=== PATIENT | male | born 1935 | race Hispanic/Latino ===

== ENCOUNTER 2023-09-03 11:36 | Observation (INO) | payer OTHER ==
[~2023-09-03] VITALS: Ht 157.5 cm; Wt 46.3 kg
[~2023-09-03 11:36] MED LIST: CHOL500062 PO; CRAN1CAP17 PO; ELDE350C PO; FERR-82 PO; MULT-1367 PO
[2023-09-03 13:18] LABS: BASOPHILS # (AUTO) 0.01 K/uL (0.00-0.20); BASOPHILS % (AUTO) 0.2 % (0.0-5.0); EOSINOPHILS # (AUTO) 0.02 K/uL (0.00-0.70); EOSINOPHILS % (AUTO) 0.4 % (0.0-8.0); HEMATOCRIT 32.1 % (42-54); IMMATURE GRANULOCYTE ABSOLUTE 0.02 K/uL (0-1); LYMPHOCYTES # (AUTO) 0.7 K/uL (1.0-4.8); MEAN CORPUSCULAR HEMOGLOBIN 31.7 pg (27.0-33.0); MEAN CORPUSCULAR VOLUME 93.3 fL (79-99); MONOCYTES # (AUTO) 0.4 K/uL (0.1-1.0); MONOCYTES % (AUTO) 8.1 % (3.0-13.0); NEUTROPHILS # (AUTO) 3.6 K/uL (1.8-7.7); NEUTROPHILS % (AUTO) 75.9 % (40.0-77.0); PLATELET COUNT (AUTO) 144 K/uL (130-400); RED BLOOD CELL COUNT(AUTO) 3.44 MIL/uL (4.50-6.20); RED CELL DISTRIBUTION WIDTH 12.9 % (11.0-15.5); WHITE BLOOD COUNT (AUTO) 4.7 K/uL (4.8-10.8)
[2023-09-03 13:29] LABS: ALBUMIN 3.2 g/dL (3.5-5.0); BILIRUBIN,TOTAL 0.8 mg/dL (0.2-1.0); CREATININE 0.8 mg/dL (0.5-1.3); POTASSIUM 3.8 mmol/L (3.5-5.1); TOTAL PROTEIN, SERUM 6.6 g/dL (6.0-8.3)
[2023-09-03 13:33] LABS: INR 0.96 (0.85-1.15); PROTHROMBIN TIME 11.4 SEC (9.6-11.6)
[2023-09-03 13:34] LABS: PARTIAL THROMBOPLASTIN TIME 31.6 SEC (26.3-35.5)
[2023-09-03] MEDS: MORPHINE 2 MG SYG IM ONE (13:53)
[2023-09-03] MEDS: ONDANSETRON 4MG INJ IVP ONE (13:54)
[2023-09-03 16:06] LABS: APPEARANCE,URINE CLEAR (CLEAR); BILIRUBIN,URINE NEGATIVE (NEGATIVE); COLOR,URINE YELLOW (YELLOW); GLUCOSE, URINE (UA) NEGATIVE (NEGATIVE); KETONES,URINE NEGATIVE (NEGATIVE); LEUKOCYTE ESTERASE ,URINE NEGATIVE Leu/uL (NEGATIVE); NITRATE,URINE NEGATIVE (NEGATIVE); PROTEIN,URINE NEGATIVE (NEGATIVE); UROBILINOGEN,URINE 0.2 mg/dL (0.2-1.0)
[2023-09-03 16:08] LABS: ADD UA MICROSCOPIC YES
[2023-09-03 16:22] LABS: RBC,URINE None Seen /HPF (0-1); WBC,URINE 0-1 /HPF (0-1)
[2023-09-03 16:23] LABS: BACTERIA,URINE None Seen /HPF (None Seen); SQUAMOUS EPITHELIAL CELL,UR None Seen /HPF (0-2)
[2023-09-03] MEDS ORDERED: ONDANSETRON 4MG INJ IVP PRN (18:30)
[2023-09-03] MEDS ORDERED: ACETAMINOPHEN 325 MG TAB PO PRN (18:30)
[2023-09-03] MEDS ORDERED: KETOROLAC 30MG VIAL (30MG/ML) IVP PRN (18:30)
[2023-09-04 07:22] VITALS: BP 127/57; PULSE 66; RESP 18
[2023-09-04 08:04] LABS: BASOPHILS # (AUTO) 0.01 K/uL (0.00-0.20); BASOPHILS % (AUTO) 0.2 % (0.0-5.0); EOSINOPHILS # (AUTO) 0.07 K/uL (0.00-0.70); EOSINOPHILS % (AUTO) 1.6 % (0.0-8.0); HEMATOCRIT 32.7 % (42-54); IMMATURE GRANULOCYTE ABSOLUTE 0.01 K/uL (0-1); LYMPHOCYTES # (AUTO) 0.7 K/uL (1.0-4.8); LYMPHOCYTES % (AUTO) 15.3 % (21.0-51.0); MEAN CORPUSCULAR HGB CONC 33.6 g/dL (32.0-36.0); MEAN CORPUSCULAR VOLUME 95.1 fL (79-99); MONOCYTES # (AUTO) 0.5 K/uL (0.1-1.0); MONOCYTES % (AUTO) 10.9 % (3.0-13.0); NEUTROPHILS # (AUTO) 3.1 K/uL (1.8-7.7); NEUTROPHILS % (AUTO) 71.8 % (40.0-77.0); PLATELET COUNT (AUTO) 144 K/uL (130-400); RED BLOOD CELL COUNT(AUTO) 3.44 MIL/uL (4.50-6.20); RED CELL DISTRIBUTION WIDTH 12.7 % (11.0-15.5); WHITE BLOOD COUNT (AUTO) 4.3 K/uL (4.8-10.8)
[2023-09-04 08:20] VITALS: BP 146/74; PULSE 68; RESP 16
[2023-09-04 08:26] LABS: BILIRUBIN,TOTAL 0.8 mg/dL (0.2-1.0); CREATININE 0.8 mg/dL (0.5-1.3); MAGNESIUM 1.8 mg/dL (1.80-2.40); POTASSIUM 3.9 mmol/L (3.5-5.1); TOTAL PROTEIN, SERUM 6.4 g/dL (6.0-8.3)
[2023-09-04] MEDS ORDERED: ACETAMINOPHEN WITH CODEINE 1 TAB TAB PO PRN (10:00)
[2023-09-04 12:00] VITALS: BP 124/60; PULSE 70; RESP 18
[2023-09-04 16:00] VITALS: BP 153/70; PULSE 78; RESP 16
[2023-09-04 20:00] VITALS: BP 131/55; PULSE 69; RESP 15
[2023-09-05] VITALS (7 sets, daily range): BP systolic 109–147; BP diastolic 54–70; PULSE 68–92; RESP 15–18; O2SAT 99
[2023-09-06] VITALS: BP 108/56; PULSE 64; RESP 16
[2023-09-06 04:00] VITALS: BP 110/59; PULSE 68; RESP 16
[2023-09-06 07:10] VITALS: BP 156/68; PULSE 70; RESP 18
[2023-09-06 08:00] VITALS: O2SAT 99
== END 2023-09-06 13:45 | disposition home or self-care (01) ==
LOC: EDH 11:36 → EDHIP 11:37 → UNDOADMOB 18:24 → 3DH 09-04 07:43 → EDHIP 09-04 07:43
PROVIDERS: ADMIT Internal Medicine; ATTEND Internal Medicine
DX: S70.01XA Contusion of right hip, initial encounter (principal); M79.604 Pain in right leg; Z88.0 Allergy status to penicillin; W01.0XXA Fall on same level from slipping, tripping and stumbling without subsequent striking against object, initial encounter; Y93.89 Activity, other specified; Y92.098 Other place in other non-institutional residence as the place of occurrence of the external cause; Y99.8 Other external cause status
CPT/HCPCS: 99284; 84484; 80053 ×2; 85025 ×2; 85610; 85730; 81001; 36415 ×2; 73502; 73552; 72192; 83735; 97161; 97530 ×7; 97116; G0378 ×74; J1885

== ENCOUNTER 2024-01-12 11:11 | Observation (INO) | payer OTHER ==
[~2024-01-12] VITALS: Ht 157.5 cm; Wt 45.4 kg
[2024-01-12 12:22] LABS: BASOPHILS # (AUTO) 0.01 K/uL (0.00-0.20); BASOPHILS % (AUTO) 0.2 % (0.0-5.0); EOSINOPHILS # (AUTO) 0.01 K/uL (0.00-0.70); EOSINOPHILS % (AUTO) 0.2 % (0.0-8.0); HEMATOCRIT 34.8 % (42-54); IMMATURE GRANULOCYTE ABSOLUTE 0.01 K/uL (0-1); LYMPHOCYTES # (AUTO) 0.6 K/uL (1.0-4.8); LYMPHOCYTES % (AUTO) 13.8 % (21.0-51.0); MEAN CORPUSCULAR HEMOGLOBIN 31.8 pg (27.0-33.0); MEAN CORPUSCULAR HGB CONC 32.8 g/dL (32.0-36.0); MEAN CORPUSCULAR VOLUME 96.9 fL (79-99); MONOCYTES # (AUTO) 0.2 K/uL (0.1-1.0); MONOCYTES % (AUTO) 5.2 % (3.0-13.0); NEUTROPHILS # (AUTO) 3.4 K/uL (1.8-7.7); NEUTROPHILS % (AUTO) 80.4 % (40.0-77.0); PLATELET COUNT (AUTO) 195 K/uL (130-400); RED BLOOD CELL COUNT(AUTO) 3.59 MIL/uL (4.50-6.20); RED CELL DISTRIBUTION WIDTH 13.5 % (11.0-15.5); WHITE BLOOD COUNT (AUTO) 4.3 K/uL (4.8-10.8)
[2024-01-12 12:45] LABS: B-TYPE NATRIURETIC PEPTIDE 82 pg/mL (0-100)
[2024-01-12 12:50] LABS: ALBUMIN 3.3 g/dL (3.5-5.0); BILIRUBIN,TOTAL 0.5 mg/dL (0.2-1.0); CREATININE 0.9 mg/dL (0.5-1.3); POTASSIUM 3.8 mmol/L (3.5-5.1); TOTAL PROTEIN, SERUM 6.7 g/dL (6.0-8.3)
[2024-01-12] MEDS: 1/2 NS 1000ML 1,000 ML IV SCH (18:23)
[2024-01-12 18:40] VITALS: O2SAT 100
[2024-01-12 19:00] VITALS: BP 144/72; PULSE 66; RESP 18; TEMP 97.8
[2024-01-12] MEDS: cefTRIAXone 1G VIAL IVPB SCH (20:33)
[2024-01-12] MEDS: cefTRIAXone 1G VIAL ONE (20:34)
[2024-01-12 23:00] VITALS: BP 146/65; PULSE 71; RESP 18; TEMP 97.5
[2024-01-13 04:00] VITALS: BP 162/98; PULSE 68; RESP 18; TEMP 97.1
[2024-01-13 08:00] VITALS: O2SAT 99
[2024-01-13 08:16] VITALS: BP 119/63; PULSE 66; RESP 17; TEMP 97.8
[2024-01-13] MEDS: ENOXAPARIN SODIUM 40 MG/0.4 ML SYRINGE SQ SCH (09:00)
[2024-01-13 12:38] VITALS: BP 129/59; PULSE 65; RESP 17; TEMP 98.5
[2024-01-13 16:00] VITALS: BP 138/66; PULSE 70; RESP 18; TEMP 98.3
[2024-01-13 20:00] VITALS: BP 130/57; PULSE 64; RESP 18; TEMP 97.7; O2SAT 99
[2024-01-14] VITALS: BP 127/69; PULSE 65; RESP 18; TEMP 97.8
[2024-01-14 04:00] VITALS: BP 137/73; PULSE 71; RESP 18; TEMP 97.5
[2024-01-14 08:00] VITALS: BP 147/73; PULSE 63; RESP 18; TEMP 97.8
[2024-01-14 08:22] VITALS: O2SAT 100
[2024-01-14 12:00] VITALS: BP 115/52; PULSE 68; RESP 16; TEMP 96.7
== END 2024-01-14 11:45 | disposition home or self-care (01) ==
LOC: EDH 11:11 → 3BH 18:29 → EDH 18:34 → 3AH 01-13 13:38
PROVIDERS: ADMIT Internal Medicine; ATTEND Internal Medicine
DX: R55 Syncope and collapse (principal); E86.0 Dehydration; D64.9 Anemia, unspecified; E11.9 Type 2 diabetes mellitus without complications; I10 Essential (primary) hypertension; I95.9 Hypotension, unspecified; E78.5 Hyperlipidemia, unspecified; Z88.0 Allergy status to penicillin; Z79.899 Other long term (current) drug therapy; W19.XXXA Unspecified fall, initial encounter; Y93.89 Activity, other specified; Y92.89 Other specified places as the place of occurrence of the external cause; Y99.8 Other external cause status
CPT/HCPCS: 96361; 96365; 99285; 82550; 84484; 80053; 83880; 85025; 36415; 71045; 70450; 93005 ×2; 96372 ×2; 96366 ×3; 96368; G0378 ×42; J0696 ×2; J1650 ×2

== ENCOUNTER 2024-04-23 15:16 | Emergency (ER) | payer OTHER ==
[~2024-04-23] VITALS: Ht 167.6 cm; Wt 54.4 kg
--- NOTE | 2024-04-23 16:07 | HMCIMG ---
Exam Type: CHEST 1VW Clinical Information: cp Comparison: None Findings: The lungs are hyperinflated consistent with COPD. There are clear of infiltrates and the heart is normal in size. IMPRESSION: COPD.
[2024-04-23 16:08] LABS: BASOPHILS # (AUTO) 0.01 K/uL (0.00-0.20); BASOPHILS % (AUTO) 0.3 % (0.0-5.0); EOSINOPHILS # (AUTO) 0.03 K/uL (0.00-0.70); EOSINOPHILS % (AUTO) 0.8 % (0.0-8.0); HEMATOCRIT 40.4 % (42-54); IMMATURE GRANULOCYTE ABSOLUTE 0.01 K/uL (0-1); LYMPHOCYTES # (AUTO) 0.8 K/uL (1.0-4.8); LYMPHOCYTES % (AUTO) 20.6 % (21.0-51.0); MEAN CORPUSCULAR HEMOGLOBIN 32.6 pg (27.0-33.0); MEAN CORPUSCULAR HGB CONC 32.9 g/dL (32.0-36.0); MONOCYTES # (AUTO) 0.2 K/uL (0.1-1.0); NEUTROPHILS # (AUTO) 2.9 K/uL (1.8-7.7); PLATELET COUNT (AUTO) 151 K/uL (130-400); RED BLOOD CELL COUNT(AUTO) 4.08 MIL/uL (4.50-6.20); RED CELL DISTRIBUTION WIDTH 13.6 % (11.0-15.5)
[2024-04-23] MEDS: 0.9%NACL 1000ML 1,000 ML IV ONE (16:11)
[2024-04-23 16:20] LABS: CREATININE 0.8 mg/dL (0.5-1.3); POTASSIUM 3.3 mmol/L (3.5-5.1)
[2024-04-23 16:30] LABS: ALBUMIN 3.1 g/dL (3.5-5.0); BILIRUBIN,TOTAL 0.5 mg/dL (0.2-1.0); TOTAL PROTEIN, SERUM 6.5 g/dL (6.0-8.3)
--- NOTE | 2024-04-23 16:58 | EKG ---
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
--- NOTE | 2024-04-23 17:44 | ERN ---
General Chief Complaint: Weakness Stated Complaint: WEAKNESS Time Seen by MD: 15:22 Source: patient, EMS History of Present Illness Initial Comments Patient is a an 88-year-old male coming in to be evaluated for generalized body weakness. Per family member at bedside patient has been feeling weak for a couple of days. Family member was concerned because today he was a little bit more weak than usual for decided to bring him in to be evaluated. Allergies: Coded Allergies: Penicillins (Unverified Allergy, Unknown, 01/14/23) Home Meds No Active Prescriptions or Reported Meds Past Medical History Past Medical History: Other Medical History Other: ?DEMENTIA-FAMILY DENIES ANY OTHER Past Surgical History: None Family History Family History: Negative Social History Social History: Negative ROS Dictation CONSTITUTIONAL: No chills, no fever, weakness, no diaphoresis, no malaise. HEAD/FACE: No signs of trauma. EENT: No eye pain, no blurred vision, no tearing, no double vision, no ear pain, no ear discharge, no nose pain, no nasal congestion, no throat pain, no throat swelling, no mouth pain. RESPIRATORY: No cough, no orthopnea, no SOB, no stridor, no wheezing. CARDIOVASCULAR: No chest pain, no edema, no palpitations, no syncope. GASTROINTESTINAL/ABDOMINAL: No abdominal pain, no constipation, no diarrhea, no nausea, no vomiting. GENITOURINARY: No abnormal discharge, no dysuria, no frequent urination, no hematuria. No complaints of pain in the genitals. MUSCULOSKELETAL: No back pain, no gout, no joint pain, no joint swelling, no muscle pain, no muscle stiffness, no neck pain. INTEGUMENTARY: No change in color, no change in hair/nails, no dryness, no l esion, no lumps, no rash. NEUROLOGICAL/PSYCH: No anxiety, not depressed, no emotional problem, no headache, no numbness, no pre-existing deficit, no history of seizures, no tremors, no weakness. HEMATOLOGIC/LYMPHATIC: Not anemic, no history of blood clots, no apparent bleeding, no bruising, glands not swollen. All Systems Negative, Except as Noted. Physical Exam Physical Exam Dictation VITAL SIGNS: Reviewed. GENERAL APPEARANCE: Alert, oriented x3, no acute distress, cachectic. HEAD AND FACE: Non-traumatic. EYES: PERRL, pink conjunctivas, eyelid no trauma, anterior chamber clear. EARS: Pinnas intact and no signs of trauma or erythema. Ear canals clear and no discharge. TMs no erythema. NOSE: No discharge, no bleeding. OROPHARYNX: Mouth normal, teeth no caries, tongue pink. Pharynx clear, no erythema. Tonsils no exudates, no abscesses noted. Mucous membrane moist. NECK: Supple, non-tender, no thyromegaly, no masses, no JVD, no bruits. BREAST: Deferred. CHEST: No tenderness, no crepitus, no paradoxical movement, no retractions. LUNGS: Clear, well-ventilated, symmetric, no rales, no wheezing, no rhonchi, no stridor, good breath sounds bilaterally. HEART: Regular rate, regular rhythm, no murmur, no gallops. VASCULAR: No peripheral edema. ABDOMEN: Soft, positive bowel sounds, nondistended, no guarding, nontender, no rebound, no masses no hepatomegaly, no splenomegaly, no Berger's sign, no hernias. RECTAL: Deferred. GENITAL: Deferred. NEUROLOGICAL: Normal speech, gross motor function intact, gross sensory function intact. MUSCULOSKELETAL: Neck nontender, full range of motion, back nontender, full range of motion. EXTREMITIES: Nontender, full range of motion. SKIN: Color pink, dry, no turgor, no rash, no lacerations, no abrasions, no contusions. LYMPHATICS: Deferred. Results Laboratory and Microbiology Lab and Micro Result Laboratory Tests Test 04/23/24 16:00 White Blood Count 4.0 K/uL (4.8-10.8) L Red Blood Count 4.08 MIL/uL (4.50-6.20) L Hemoglobin 13.3 g/dL (14.0-18.0) L Hematocrit 40.4 % (42-54) L Mean Corpuscular Volume 99.0 fL (79-99) Mean Corpuscular Hemoglobin 32.6 pg (27.0-33.0) Mean Corpuscular Hemoglobin Concent 32.9 g/dL (32.0-36.0) Red Cell Distribution Width 13.6 % (11.0-15.5) Platelet Count 151 K/uL (130-400) Mean Platelet Volume 10.4 fL (7.5-10.5) Immature Granulocyte % (Auto) 0.3 % (0-1) Neutrophils (%) (Auto) 72.0 % (40.0-77.0) Lymphocytes (%) (Auto) 20.6 % (21.0-51.0) L Monocytes (%) (Auto) 6.0 % (3.0-13.0) Eosinophils (%) (Auto) 0.8 % (0.0-8.0) Basophils (%) (Auto) 0.3 % (0.0-5.0) Neutrophils # (Auto) 2.9 K/uL (1.8-7.7) Lymphocytes # (Auto) 0.8 K/uL (1.0-4.8) L Monocytes # (Auto) 0.2 K/uL (0.1-1.0) Eosinophils # (Auto) 0.03 K/uL (0.00-0.70) Basophils # (Auto) 0.01 K/uL (0.00-0.20) Absolute Immature Granulocyte (auto 0.01 K/uL (0-1) Nucleated Red Blood Cells 0.0 % (0.0-0.19) Sodium Level 144 mmol/L (136-145) Potassium Level 3.3 mmol/L (3.5-5.1) L Chloride Level 104 mmol/L (101-111) Carbon Dioxide Level 38 mmol/L (21-32) H Blood Urea Nitrogen 43 mg/dL (7-18) H Creatinine 0.8 mg/dL (0.5-1.3) Glomerular Filtration Rate Calc 86 mL/min (>90) Random Glucose 109 mg/dL (70-105) H Total Calcium 9.4 mg/dL (8.5-10.1) Total Bilirubin 0.5 mg/dL (0.2-1.0) Aspartate Amino Transf (AST/SGOT) 17 U/L (10-37) Alanine Aminotransferase (ALT/SGPT) 12 U/L (12-78) Alkaline Phosphatase 70 U/L (50-136) Total Creatine Kinase 28 U/L (21-232) # Troponin I High Sensitivity 8 ng/L (4-75) Total Protein 6.5 g/dL (6.0-8.3) Albumin 3.1 g/dL (3.5-5.0) L Lipase 26 U/L (16-77) Labs Reviewed?: Yes EKG/XRAY/US/CT/MRI X-RAY Comment 04/23/2024 time 3:40 p.m. is Ventricular rate 76 Sinus rhythm SD [address] wave elevation or depression MDM MDM: Differential diagnosis: Dehydration, weakness, chronic fatigue, Patient is a an 88-year-old gentleman brought in by family members due to generalized body weakness. IV fluids help patient is significantly. Throughout ER visit patient has been stable he is even eating I his usual self as per family members. Patient will be discharged in stable condition with diagnosis of chronic fatigue and dehydration. ED Course Orders Procedure Category Date Status Time Cbc With Differential LAB 04/23/24 Complete 15:30 Comprehensive LAB 04/23/24 Complete Metabolic Panel 15:30 Troponin I High LAB 04/23/24 Complete Sensitivity 15:30 Urinalysis Profile LAB 04/23/24 In Process 15:30 12 Lead Ekg Tracing- EKG 04/23/24 Complete Technical 15:30 0.9%Nacl 1000ml (Ns PHA 04/23/24 Complete 1000ml) 15:30 Creatine Kinase, Total LAB 04/23/24 Complete 15:30 Chest 1vw RAD 04/23/24 Resulted 15:30 Lipase LAB 04/23/24 Complete 15:30 Potassium Bicarb/Cit PHA 04/23/24 Verified Ac 25meq (K-Lyte Ta 18:30 Current Medications Medications (Trade) Dose Ordered Sig/Justin Route PRN Reason Start Time Stop Time Status Last Admin Dose Admin Sodium Chloride 1,000 ml @ 0 mls/hr ONCE ONCE IV 04/23/24 15:30 04/23/24 15:33 DC 04/23/24 16:11 Vital Signs Date Time Temp Pulse Resp B/P (MAP) Pulse Ox O2 Delivery O2 Flow Rate FiO2 04/23/24 16:48 63 16 127/55 100 Room Air* 0 21 04/23/24 15:19 80 17 107/69 97 0 DX & DISP Disposition: Discharge Departure Impression: Primary Impression: Weakness Additional Impressions: Dehydration, Chronic fatigue Condition: Stable Scripts No Active Prescriptions or Reported Meds Additional Instructions: FOLLOW-UP WITH PRIMARY CARE PROVIDER IN 1 TO 2 DAYS. TAKE MEDICATIONS DIRECTED HERE IN THE EMERGENCY ROOM. OKAY TO CONTINUE HOME MEDICATIONS UNLESS OTHERWISE DISCUSSED DURING YOUR VISIT IN THE EMERGENCY ROOM TODAY. RETURN TO YOUR NEAREST EMERGENCY ROOM IF SYMPTOMS WORSEN OR IF THERE IS NO IMPROVEMENT. CALL 911 IF YOU NEED IMMEDIATE ASSISTANCE. TAKE TYLENOL [id number] NEEDED AND IF NO CONTRAINDICATIONS ARE PRESENT. INCREASE ORAL HYDRATION. A WOUND CULTURE OR URINE CULTURE WAS ORDERED HERE IN THE EMERGENCY ROOM DEPARTMENT PLEASE FOLLOW-UP WITH PRIMARY CARE PROVIDER AND ADVISE THEM TO GET REPEAT PORTS FROM OUR FACILITY. IF YOU HAD ANY ALLYSON WRAP/SPLINTS THAT WERE APPLIED HERE, PLE ASE DO NOT REMOVE THEM UNTIL YOU SEE YOUR PRIMARY CARE OR SPECIALTY. Referrals: Referrals: DAVID ANDRADE MD (PCP) Time of Disposition: 18:14 TARI YU MD Apr 23, 2024 17:44
[2024-04-23 18:22] LABS: APPEARANCE,URINE CLEAR (CLEAR); BILIRUBIN,URINE NEGATIVE (NEGATIVE); COLOR,URINE YELLOW (YELLOW); GLUCOSE, URINE (UA) NEGATIVE (NEGATIVE); KETONES,URINE NEGATIVE (NEGATIVE); LEUKOCYTE ESTERASE ,URINE 250 Leu/uL (NEGATIVE); NITRATE,URINE NEGATIVE (NEGATIVE); OCCULT BLOOD,URINE SMALL (NEGATIVE); PROTEIN,URINE 70 mg/dL (NEGATIVE); UROBILINOGEN,URINE 0.2 mg/dL (0.2-1.0)
[2024-04-23 18:23] LABS: ADD UA MICROSCOPIC YES
[2024-04-23 18:27] LABS: BACTERIA,URINE RARE /HPF (None Seen); MUCUS,URINE RARE LPF (None Seen); OTHER CASTS, URINE 1 /LPF (None Seen); WBC,URINE 26-50 /HPF (0-1)
[2024-04-23] MEDS: PoTASSium BIcarbonate/CIT AC 25 MEQ TABLET.EFF PO ONE (18:27)
[2024-04-23 18:31] VITALS: BP 108/60; PULSE 78; RESP 18; O2SAT 98
== END 2024-04-23 18:39 | disposition home or self-care (01) ==
LOC: EDH 15:16
DX: E86.0 Dehydration (principal); R53.82 Chronic fatigue, unspecified; F03.90 Unspecified dementia, unspecified severity, without behavioral disturbance, psychotic disturbance, mood disturbance, and anxiety; J44.9 Chronic obstructive pulmonary disease, unspecified; Z88.0 Allergy status to penicillin
CPT/HCPCS: 99285; 96360; 71045; 82550; 84484; 80053; 83690; 85025; 87086; 81001; 36415; 93005; J7030